=== PATIENT | female | born 1980 | race Caucasian/White ===

== ENCOUNTER 2016-06-07 02:46 | Emergency (ER) | payer OTHER ==
[2016-06-07 05:55] VITALS: BP 130/96
== END 2016-06-07 05:55 | disposition home or self-care (01) ==
LOC: ED 02:46
DX: F41.9 Anxiety disorder, unspecified (principal); I10 Essential (primary) hypertension; E11.9 Type 2 diabetes mellitus without complications; Z79.84 Long term (current) use of oral hypoglycemic drugs
CPT/HCPCS: 82962

== ENCOUNTER 2016-08-09 20:51 | Emergency (ER) | payer OTHER ==
[2016-08-09 21:03] VITALS: BP 116/67
== END 2016-08-09 21:03 | disposition left against medical advice (07) ==
LOC: ED 20:51
DX: Z53.21 Procedure and treatment not carried out due to patient leaving prior to being seen by health care provider (principal)
CPT/HCPCS: 82962

== ENCOUNTER 2016-09-08 00:46 | Emergency (ER) | payer OTHER ==
[~2016-09-08] VITALS: Ht 175.3 cm; Wt 132.4 kg
[2016-09-08 02:51] VITALS: BP 122/75
== END 2016-09-08 02:51 | disposition home or self-care (01) ==
LOC: ED 00:46
DX: F41.0 Panic disorder [episodic paroxysmal anxiety] (principal); E11.9 Type 2 diabetes mellitus without complications; Z79.84 Long term (current) use of oral hypoglycemic drugs
CPT/HCPCS: 82962

== ENCOUNTER 2016-09-15 02:27 | Emergency (ER) | payer OTHER ==
[2016-09-15 03:26] VITALS: BP 137/89
== END 2016-09-15 03:26 | disposition home or self-care (01) ==
LOC: ED 02:27
DX: F41.9 Anxiety disorder, unspecified (principal); I10 Essential (primary) hypertension; E11.9 Type 2 diabetes mellitus without complications; Z79.899 Other long term (current) drug therapy; Z86.59 Personal history of other mental and behavioral disorders
CPT/HCPCS: 82962

== ENCOUNTER 2016-09-27 16:04 | Emergency (ER) | payer OTHER ==
[2016-09-27 18:01] VITALS: BP 137/77
== END 2016-09-27 18:02 | disposition home or self-care (01) ==
LOC: ED 16:04
DX: S90.811A Abrasion, right foot, initial encounter (principal); I10 Essential (primary) hypertension; E11.9 Type 2 diabetes mellitus without complications; Z79.84 Long term (current) use of oral hypoglycemic drugs; X58.XXXA Exposure to other specified factors, initial encounter; Y93.89 Activity, other specified; Y99.8 Other external cause status; Y92.89 Other specified places as the place of occurrence of the external cause

== ENCOUNTER 2016-10-12 01:51 | Emergency (ER) | payer OTHER ==
[2016-10-12 04:01] VITALS: BP 134/76
== END 2016-10-12 04:01 | disposition home or self-care (01) ==
LOC: ED 01:51
DX: F13.20 Sedative, hypnotic or anxiolytic dependence, uncomplicated (principal); E11.9 Type 2 diabetes mellitus without complications; I10 Essential (primary) hypertension; Z86.59 Personal history of other mental and behavioral disorders; Z79.84 Long term (current) use of oral hypoglycemic drugs

== ENCOUNTER 2016-11-12 18:00 | Emergency (ER) | payer OTHER ==
[~2016-11-12] VITALS: Ht 175.3 cm; Wt 125.2 kg
[2016-11-12 19:05] VITALS: BP 133/93
== END 2016-11-12 19:05 | disposition home or self-care (01) ==
LOC: ED 18:00
DX: F41.9 Anxiety disorder, unspecified (principal); E11.9 Type 2 diabetes mellitus without complications; I10 Essential (primary) hypertension; Z79.84 Long term (current) use of oral hypoglycemic drugs

== ENCOUNTER 2016-11-16 16:59 | Emergency (ER) | payer OTHER ==
[~2016-11-16] VITALS: Ht 175.3 cm; Wt 125.2 kg
[2016-11-16 18:04] VITALS: BP 110/60
== END 2016-11-16 18:04 | disposition home or self-care (01) ==
LOC: ED 16:59
DX: F41.9 Anxiety disorder, unspecified (principal)
CPT/HCPCS: 82962

== ENCOUNTER 2016-11-18 18:39 | Emergency (ER) | payer OTHER ==
[2016-11-18 20:53] VITALS: BP 165/99
== END 2016-11-18 20:53 | disposition home or self-care (01) ==
LOC: ED 18:39
DX: F41.9 Anxiety disorder, unspecified (principal); I10 Essential (primary) hypertension

== ENCOUNTER 2016-11-25 17:03 | Emergency (ER) | payer OTHER ==
[2016-11-25 18:35] LABS: BASOPHIL % 0.4 % (0-2); PLATELET COUNT 224 x10^3mcL (130-400)
[2016-11-25 18:47] LABS: CALCIUM 9.3 mg/dL (8.5-10.1); CARBON DIOXIDE 29.5 mmol/L (21-32); CHLORIDE SERUM 102 mmol/L (98-107); CREATININE SERUM 0.9 mg/dL (0.6-1.0); GFR1 > 60 mL/min; GLUCOSE SERUM 156 mg/dL (74-106); POTASSIUM SERUM 3.6 mmol/L (3.5-5.1); SODIUM SERUM 137 mmol/L (136-145)
[2016-11-25 18:52] LABS: ALKALINE PHOSPHATASE 65 U/L (46-116); ALT/SGPT 115 U/L (14-59); AST/SGOT 54 U/L (15-37)
[2016-11-25 18:57] LABS: TOTAL PROTEIN, SERUM 8.4 g/dL (6.4-8.2)
[2016-11-25 19:31] VITALS: BP 138/84
== END 2016-11-25 19:31 | disposition home or self-care (01) ==
LOC: ED 17:03
PROVIDERS: Emergency Medicine
DX: F41.0 Panic disorder [episodic paroxysmal anxiety] (principal); I10 Essential (primary) hypertension; E11.9 Type 2 diabetes mellitus without complications; Z79.84 Long term (current) use of oral hypoglycemic drugs
CPT/HCPCS: 36415

== ENCOUNTER 2016-12-29 08:52 | Emergency (ER) | payer OTHER ==
[2016-12-29 09:44] VITALS: BP 149/57
== END 2016-12-29 09:44 | disposition home or self-care (01) ==
LOC: ED 08:52
DX: F41.1 Generalized anxiety disorder (principal); I10 Essential (primary) hypertension; E11.9 Type 2 diabetes mellitus without complications
CPT/HCPCS: Q0162

== ENCOUNTER 2017-01-30 05:08 | Emergency (ER) | payer OTHER ==
[~2017-01-30] VITALS: Ht 175.3 cm; Wt 124.7 kg
[2017-01-30 05:14] VITALS: Ht 175.3 cm; Wt 124.7 kg
[2017-01-30 07:25] VITALS: BP 132/89
== END 2017-01-30 10:18 | disposition home or self-care (01) ==
LOC: ED 05:08
DX: F41.1 Generalized anxiety disorder (principal); I10 Essential (primary) hypertension; E11.9 Type 2 diabetes mellitus without complications
CPT/HCPCS: J2250

== ENCOUNTER 2017-05-23 00:09 | Emergency (ER) | payer OTHER ==
[~2017-05-23] VITALS: Ht 175.3 cm; Wt 137.0 kg
[2017-05-23 00:13] VITALS: Ht 175.3 cm; Wt 137.0 kg
[2017-05-23 03:33] VITALS: BP 138/84
== END 2017-05-23 03:35 | disposition home or self-care (01) ==
LOC: ED 00:09
DX: O99.341 Other mental disorders complicating pregnancy, first trimester (principal); F41.9 Anxiety disorder, unspecified; I10 Essential (primary) hypertension; E11.9 Type 2 diabetes mellitus without complications; Z3A.09 9 weeks gestation of pregnancy
CPT/HCPCS: 82962; Q0092

== ENCOUNTER 2019-02-25 14:19 | Emergency (ER) | payer OTHER ==
[~2019-02-25] VITALS: Ht 175.3 cm; Wt 131.1 kg
[2019-02-25 15:11] VITALS: Ht 175.3 cm; Wt 131.1 kg
[2019-02-25 17:44] LABS: BASOPHIL % 0.2 % (0-2); CALCIUM 9.1 mg/dL (8.5-10.1); CARBON DIOXIDE 28.7 mmol/L (21-32); CHLORIDE SERUM 101 mmol/L (98-107); CREATININE SERUM 0.8 mg/dL (0.6-1.0); GFR1 > 60 mL/min; GLUCOSE SERUM 225 mg/dL (74-106); PLATELET COUNT 268 x10^3mcL (130-400); POTASSIUM SERUM 4.2 mmol/L (3.5-5.1); RED CELL DISTRIBUTION WIDTH 12.7 % (11.5-14.5); SODIUM SERUM 138 mmol/L (136-145)
[2019-02-25 17:48] LABS: ALBUMIN 3.7 g/dL (3.4-5.0); ALKALINE PHOSPHATASE 74 U/L (46-116); ALT/SGPT 31 U/L (14-59); AST/SGOT 12 U/L (15-37); BILIRUBIN TOTAL 0.25 mg/dL (0.20-1.00); TOTAL PROTEIN, SERUM 7.8 g/dL (6.4-8.2)
[2019-02-25 17:54] VITALS: BP 121/74
== END 2019-02-25 18:19 | disposition home or self-care (01) ==
LOC: ED 14:19
PROVIDERS: Emergency Medicine
DX: R42 Dizziness and giddiness (principal); E11.9 Type 2 diabetes mellitus without complications; I10 Essential (primary) hypertension; Z98.890 Other specified postprocedural states
CPT/HCPCS: 36415

== ENCOUNTER 2019-12-28 07:16 | Emergency (ER) | payer OTHER ==
[~2019-12-28] VITALS: Ht 175.3 cm; Wt 125.6 kg
[2019-12-28 07:31] VITALS: Ht 175.3 cm; Wt 125.6 kg
[2019-12-28 08:22] LABS: BASOPHIL % 0.5 % (0-2); PLATELET COUNT 233 x10^3mcL (130-400); RED CELL DISTRIBUTION WIDTH 12.2 % (11.5-14.5)
[2019-12-28 08:26] LABS: CARBON DIOXIDE 29.5 mmol/L (21-32); CHLORIDE SERUM 104 mmol/L (98-107); CREATININE SERUM 0.8 mg/dL (0.6-1.0); GFR1 > 60 mL/min; GLUCOSE SERUM 138 mg/dL (74-106); POTASSIUM SERUM 3.8 mmol/L (3.5-5.1); SODIUM SERUM 140 mmol/L (136-145)
[2019-12-28 08:31] LABS: ALBUMIN 3.9 g/dL (3.4-5.0); ALKALINE PHOSPHATASE 53 U/L (46-116); ALT/SGPT 25 U/L (14-59); AST/SGOT 14 U/L (15-37); BILIRUBIN TOTAL 0.6 mg/dL (0.20-1.00); LIPASE 65 IU/L (73-393); TOTAL PROTEIN, SERUM 7.4 g/dL (6.4-8.2)
[2019-12-28 09:12] VITALS: BP 152/97
== END 2019-12-28 09:12 | disposition home or self-care (01) ==
LOC: ED 07:16
PROVIDERS: Specialist
DX: M54.5 Low back pain (principal); I10 Essential (primary) hypertension; E11.9 Type 2 diabetes mellitus without complications
CPT/HCPCS: 82962; J1885